=== PATIENT | female | born 1995 | race Caucasian/White ===

== ENCOUNTER 2016-12-15 11:05 | Emergency (ER) | payer OTHER ==
[~2016-12-15] VITALS: Ht 154.9 cm; Wt 73.8 kg
[~2016-12-15 11:05] MED LIST: ROBA500T PO; Z.0.NO CURRENT MEDS
[2016-12-15 11:13] VITALS: BP 123/83; PULSE 82; RESP 16; TEMP 98.2; O2SAT 99
[2016-12-15] MEDS ORDERED: MEDR150I9 IM (11:24)
[2016-12-15] MEDS ORDERED: ORPHENADRINE INJ 60 MG/2 ML AMP IM ONE (11:30)
[2016-12-15] MEDS ORDERED: DEXAMETHASONE SOD PHOS 20 MG/5 ML VIAL IM ONE (11:30)
[2016-12-15] MEDS ORDERED: KETOROLAC TROMETHAMINE 60 MG/2 ML (IM) VIAL IM ONE (11:30)
--- NOTE | 2016-12-15 11:37 | PD ---
HPI Chief Complaint: Musculoskeletal Complaint Time Seen by Provider: 11:25 Travel History International Travel<30 days: No Contact w/Intl Traveler<30days: No Traveled to known affect area: No History of Present Illness HPI Patient is a 21-year-old female presenting to emergency for evaluation of right biceps, elbow pain. Patient states she worked out last night as she normally does, since that time she's been unable to fully extend her elbow without significant pain. She states that the bicep feels tight, the pain is cramping. She rates her pain a 7 out of 10. She denies any actual injury or trauma. She denies any popping sensation. She denies any significant past medical history. [facility] Past Medical History Medical History: Denies Significant Hx Diminished Hearing: No Immunizations Current: Yes Tetanus Vaccination: > 5 Years Influenza Vaccination: No ?: Not LMP: DEPO SHOT-DOES NOT GET THEM Past Surgical History Other Surgery: Yes (eardrum) Social History Alcohol Use: Yes Tobacco Use: Yes Substance Use: No Allergies-Medications (Allergen,Severity, Reaction): Coded Allergies: No Known Allergies (Verified , 12/15/16) Reported Meds & Prescriptions Reported Meds & Active Scripts Active Reported Depo-Provera Inj (Medroxyprogesterone Inj) 150 Mg/Ml Inj 150 Mg IM Q90D Review of Systems Except as stated in HPI: all other systems reviewed are Neg Musculoskeletal: Positive: Myalgias, Limited ROM, Cramping, Pain Physical Exam Narrative GENERAL: Well-nourished, well-developed patient. SKIN: Warm and dry. HEAD: Normocephalic. EYES: No scleral icterus. No injection or drainage. NECK: Supple, trachea midline. No JVD or lymphadenopathy. CARDIOVASCULAR: Regular rate and rhythm without murmurs, gallops, or rubs. RESPIRATORY: Breath sounds equal bilaterally. No accessory muscle use. GASTROINTESTINAL: Abdomen soft, non-tender, nondistended. MUSCULOSKELETAL: No cyanosis, or edema. Decreased range of motion with flexion of right elbow, tenderness to palpation at distal bicep head. Positive radial pulse, full range of motion in right wrist and hand. Patient is neurovascularly intact. Hook test is negative. BACK: Nontender without obvious deformity. No CVA tenderness. Data Data Last Documented VS Vital Signs Date Time Temp Pulse Resp B/P Pulse Ox O2 Delivery O2 Flow Rate FiO2 2/8/17 11:13 98.2 82 16 123/83 99 Orders Ketorolac Inj (Toradol Inj) (12/15/16 11:30) Orphenadrine Inj (Norflex Inj) (12/15/16 11:30) Dexamethasone Inj (Decadron Inj) (12/15/16 11:30) MDM Medical Decision Making Medical Screen Exam Complete: Yes Emergency Medical Condition: Yes Interpretation(s) Vital Signs Date Time Temp Pulse Resp B/P Pulse Ox O2 Delivery O2 Flow Rate FiO2 12/15/16 11:13 98.2 82 16 123/83 99 Differential Diagnosis Distal bicep tendinitis versus tendon rupture versus muscle strain versus spasm versus other Narrative Course Patient is a 21-year-old female presented to emergency department for evaluation of right AC distal bicep pain. Pain started yesterday after working out. She is neurovascularly intact. Tendon appears intact at this time. Medications given for pain control. 1215 - patient reassessed, she has somewhat improved range of motion with extension of the right elbow. She reports improvement in pain. Patient was encouraged to alternate heat and ice to the affected area, continue range of motion exercises, avoid exacerbating activities. She was encouraged to follow- up with her primary doctor orthopedic surgeon if pain persisted despite conservative therapy. She was encouraged to take medications as directed. He was encouraged to return to the emergency department for any new or worsening symptoms. Patient is stable for discharge. Diagnosis Primary Impression: Strain of distal biceps femoris tendon Referrals: Orthopaedic Surgeon Primary Care Physician Patient Instructions: General Instructions, Tendinitis (ED) Additional Instructions: Follow-up with your primary doctor Follow-up with orthopedic surgeon if symptoms persist despite conservative therapy Return to emergency department for any new or worsening symptoms Take medications as directed Alternate heat and ice to affected area, continue range of motion exercises, avoid exacerbating activities Med/Other Pt SpecificInfo: Prescription(s) given Scripts Prednisone 50 Mg Tab50 Mg PO DAILY #5 TAB Ref 0 Prov:Deirdre Wilkes 12/15/16 Cyclobenzaprine (Flexeril)10 Mg Tab10 Mg PO TID PRN (MUSCLE SPASM) 10 Days Ref 0 Prov:Deirdre Wilkes 12/15/16 Ibuprofen 800 Mg [id number] Mg PO Q6HR PRN (PAIN) 10 Days Ref 0 Prov:Deirdre Wilkes 12/15/16 Disposition: 01 DISCHARGE HOME Condition: Stable Deirdre Wilkes Dec 15, 2016 11:37
[2016-12-15] MEDS ORDERED: IBUP800T23 PO (12:13)
[2016-12-15] MEDS ORDERED: PRED50 PO (12:13)
[2016-12-15] MEDS ORDERED: CYCL1TAB29 PO (12:13)
== END 2016-12-15 12:27 | disposition home or self-care (01) ==
LOC: PHEFT 11:05
DX: S46.211A Strain of muscle, fascia and tendon of other parts of biceps, right arm, initial encounter (principal); X50.0XXA Overexertion from strenuous movement or load, initial encounter; Y93.B9 Activity, other involving muscle strengthening exercises; Y93.9 Activity, unspecified; Y92.9 Unspecified place or not applicable; Y99.9 Unspecified external cause status
CPT/HCPCS: 96372; 99283; J1100; J1885; J2360

== ENCOUNTER 2017-01-24 09:50 | Emergency (ER) | payer OTHER ==
[~2017-01-24] VITALS: Ht 154.9 cm; Wt 68.0 kg
[~2017-01-24 09:50] MED LIST changes: +CYCL1TAB29 PO; +IBUP800T23 PO; +MEDR150I9 IM; +PRED50 PO; -ROBA500T PO; -Z.0.NO CURRENT MEDS
[2017-01-24 09:52] VITALS: BP 143/80; PULSE 102; RESP 20; TEMP 98.2; O2SAT 99
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
[2017-01-24] MEDS ORDERED: IBUP800T23 PO (11:52)
== END 2017-01-24 12:06 | disposition home or self-care (01) ==
LOC: NEPB 09:50
DX: S62.640A Nondisplaced fracture of proximal phalanx of right index finger, initial encounter for closed fracture (principal); X58.XXXA Exposure to other specified factors, initial encounter; Y93.9 Activity, unspecified; Y92.9 Unspecified place or not applicable; Y99.9 Unspecified external cause status
CPT/HCPCS: 29130; 73130

== ENCOUNTER 2017-01-25 23:54 | Observation (INO) | payer OTHER ==
[~2017-01-25 23:54] MED LIST changes: -CYCL1TAB29 PO; -PRED50 PO
[2017-01-26] MEDS ORDERED: SODIUM CHLORIDE 0.9% FLUSH 10 ML FLUSH IVF PRN
[2017-01-26 00:09] VITALS: BP 116/57; PULSE 93; RESP 16; O2SAT 98
[2017-01-26 00:12] VITALS: BP 116/57; PULSE 91; RESP 16
[2017-01-26 00:24] LABS: AUTOMATED NEUTROPHIL # 3.1 TH/MM3 (1.8-7.7); BASOPHIL % 0.5 % (0.0-2.0); EOSINOPHIL # 0.1 TH/MM3 (0-0.4); HEMATOCRIT 40.1 % (35.0-46.0); HEMO FLAGS DIFF FINAL; LYMPH % 43.6 % (9.0-44.0); LYMPHOCYTE # 3.1 TH/MM3 (1.0-4.8); MEAN CELL VOLUME 93.3 FL (80.0-100.0); MEAN CORPUSCULAR HEMOGLOBIN 33.4 PG (27.0-34.0); MEAN CORPUSCULAR HGB CONC 35.8 % (32.0-36.0); MONO % 9.2 % (0.0-8.0); NEUT % 44.7 % (16.0-70.0); PLATELET COUNT 212 TH/MM3 (150-450); RED CELL DISTRIBUTION WIDTH 12.5 % (11.6-17.2)
[2017-01-26 00:35] LABS: PROTHROMBIN TIME - PATIENT 11.4 SEC (9.8-11.6)
--- NOTE | 2017-01-26 00:53 | RADRPT ---
EXAM DATE/TIME: 01/26/2017 00:40 [facility] COMPARISON: No previous studies available for comparison. INDICATIONS : Cough. MEDICAL HISTORY : None. SURGICAL HISTORY : None. ENCOUNTER: Initial ACUITY: 1 day PAIN SCORE: 0/10 LOCATION: Bilateral chest FINDINGS: A single view of the chest demonstrates the lungs to be symmetrically aerated without evidence of mas s, infiltrate or effusion. The cardiomediastinal contours are unremarkable. Osseous structures are intact. CONCLUSION: No acute disease. Enio Blanco MD on January 26, 2017 at 0:52 Board Certified Radiologist. This report was verified electronically.
[2017-01-26] MEDS ORDERED: SODIUM CHLOR 0.9% 1000 ML INJ 1,000 ML IV ONE ×2 (02:00)
[2017-01-26 02:22] LABS: BACTERIA, URINE RARE /hpf; BLOOD, URINE NEG (NEG); GLUCOSE,URINE NEG (NEG); KETONE, URINE NEG (NEG); MUCUS URINE FEW /lpf (OCC); NITRITE,URINE NEG (NEG); PH, URINE 6.5 (5.0-8.5); SQUAMOUS EPITHELIAL CELL URINE 1 /hpf (0-5); URINE COLOR LIGHT-YELLOW (YELLW/STRAW)
[2017-01-26 02:23] LABS: COMMENT (UR) CULT NOT INDICATED; CULTURE IF INDICATED CULT NOT INDICATED
[2017-01-26 02:27] LABS: AMPHETAMINE, URINE NEG (NEG); BARBITURATES, URINE NEG (NEG); COCAINE, URINE NEG (NEG)
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
[2017-01-26] MEDS ORDERED: SODIUM CHLORIDE 0.9% FLUSH 10 ML FLUSH IV FLUSH PRN (03:45)
[2017-01-26] MEDS ORDERED: NALOXONE HCL 0.4 MG/ML AMP IV PRN (03:45)
[2017-01-26] MEDS ORDERED: THIAMINE INJ 100 MG in SODIUM CHLORIDE 0.9% INJ 100 ML IV ONE (03:45)
[2017-01-26 03:50] LABS: ACETAMINOPHEN LESS THAN 2.0 MCG/ML (10.0-30.0); ALKALINE PHOSPHATASE 62 U/L (45-117); BETA HCG QUANT LESS THAN 1 MIU/ML (0-5); TOTAL BILIRUBIN ADULT 0.5 MG/DL (0.2-1.0)
[2017-01-26 04:13] LABS: ALT (GPT) 19 U/L (10-53); ANION GAP 7 MEQ/L (5-15); AST (GOT) 32 U/L (15-37); BICARBONATE 23.7 MEQ/L (21.0-32.0); BLOOD UREA NITROGEN 5 MG/DL (7-18); CHLORIDE 112 MEQ/L (98-107); GLOMERULAR FILTRATION RATE 91 ML/MIN (>89); SODIUM (NA) 143 MEQ/L (136-145)
[2017-01-26 04:25] LABS: POTASSIUM 4.8 MEQ/L (3.5-5.1)
[2017-01-26 07:30] VITALS: BP 96/51; PULSE 94; RESP 18; O2SAT 97
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
[2017-01-26] MEDS ORDERED: SODIUM CHLORIDE 0.9% FLUSH 10 ML FLUSH IV FLUSH SCH (09:00)
[2017-01-26 09:15] VITALS: BP 111/59; PULSE 72; RESP 18; TEMP 97.8; O2SAT 98
[2017-01-26 13:49] VITALS: BP 116/67; PULSE 81; RESP 20; TEMP 98.1; O2SAT 99
--- NOTE | 2017-01-26 14:11 | HHI.PR ---
Addendum to Inpatient Note Addendum Reason: Additional Documentation Additional Information Patient was seen this morning however she was treated under Cesar act although she was medically clear for discharge. Patient was seen now by psychiatry and Cesar act was lifted therefore patient will be discharged home in stable condition Discharge patient to home Condition on discharge: Improved Regular Diet as tolerated Ad Melony activity Rx written:none Follow-up with primary care physician in 1 week Adam Bhatt MD Jan 26, 2017 14:11
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
== END 2017-01-26 15:09 | disposition home or self-care (01) ==
LOC: NEPE 23:54 → NEDA 01-26 03:17 → NEPFCDU 01-26 08:00
PROVIDERS: ADMIT Hospitalist; ATTEND Hospitalist
DX: T42.4X2A Poisoning by benzodiazepines, intentional self-harm, initial encounter (principal); S62.640A Nondisplaced fracture of proximal phalanx of right index finger, initial encounter for closed fracture; F10.10 Alcohol abuse, uncomplicated; F39 Unspecified mood [affective] disorder; F17.200 Nicotine dependence, unspecified, uncomplicated; Y04.2XXA Assault by strike against or bumped into by another person, initial encounter
CPT/HCPCS: 71010; 80053; 80307; 81001; 84702; 85025; 85610; 85730; 96360; 96361; G0378; J3411; J7030

== ENCOUNTER 2018-02-23 22:48 | Emergency (ER) | payer OTHER ==
[~2018-02-23] VITALS: Ht 154.9 cm; Wt 67.0 kg
[~2018-02-23 22:48] MED LIST changes: -IBUP800T23 PO
[2018-02-23 22:54] VITALS: BP 141/86; PULSE 112; RESP 18; O2SAT 99
[2018-02-23] MEDS ORDERED: diphenhydrAMINE HCL 50 MG/ML VIAL IVP ONE (23:00)
[2018-02-23] MEDS ORDERED: FAMOTIDINE 20 MG/2 ML VIAL IV PUSH ONE (23:00)
[2018-02-23] MEDS ORDERED: SODIUM CHLORIDE 0.9% FLUSH 10 ML FLUSH IV FLUSH PRN (23:00)
[2018-02-23] MEDS ORDERED: methylPREDNISolone SOD SUCC 125 MG/2 ML VIAL IV PUSH ONE (23:00)
[2018-02-23 23:01] VITALS: RESP 20; O2SAT 98
[2018-02-23] MEDS ORDERED: CLON.5 PO (23:01)
[2018-02-23] MEDS ORDERED: PRED20 PO (23:28)
--- NOTE | 2018-02-23 23:29 | PD ---
HPI Chief Complaint: Allergic/Adverse Reaction Time Seen by Provider: 22:55 Travel History International Travel<30 days: No Contact w/Intl Traveler<30days: No Traveled to known affect area: No History of Present Illness HPI 22-year-old female presents with hive-like rash and feeling short of breath shortly prior to arrival. She denies eating anything new or exposure to any new detergent or soap or anything that she can recall. She states tonight she ate shrimp but she has had those multiple times. She denies any other concurrent complaints. Quality is hives. Location is diffuse throughout body. She denies specific modifying factors. She denies taking any Benadryl or medication prior to arrival. PFSH Past Medical History Cancer: No Cardiovascular Problems: No Chemotherapy: No Diminished Hearing: No Endocrine: No Genitourinary: No Immune Disorder: No Musculoskeletal: No Neurologic: No Psychiatric: No Reproductive: No Respiratory: No Immunizations Current: Yes Radiation Therapy: No ?: Not Past Surgical History Other Surgery: Yes (ear drum) Social History Alcohol Use: Yes (occ) Tobacco Use: No Substance Use: No Allergies-Medications (Allergen,Severity, Reaction): Coded Allergies: No Known Allergies (Verified Adverse Reaction, Unknown, 02/23/18) Reported Meds & Prescriptions Reported Meds & Active Scripts Active Prednisone 20 Mg Tab 40 Mg PO DAILY 3 Days Take 40 mg (2 tablets) daily for 5 days Reported Klonopin (Clonazepam) 0.5 Mg Tab 0.5 Mg PO HS Depo-Provera Inj (Medroxyprogesterone Inj) 150 Mg/Ml Inj 150 Mg IM Q90D Review of Systems Except as stated in HPI: all other systems reviewed are Neg Physical Exam Narrative GENERAL: 22-year-old female in no apparent distress SKIN: Hive-like reaction diffusely noted throughout body HEAD: Atraumatic. Normocephalic. EYES: Pupils equal and round. No scleral icterus. No injection or drainage. ENT: No nasal bleeding or discharge. Mucous membranes pink and moist. Uvula midline without swelling NECK: Trachea midline. No JVD. CARDIOVASCULAR: Regular rate and rhythm. No murmur appreciated. RESPIRATORY: No accessory muscle use. Clear to auscultation. Breath sounds equal bilaterally. GASTROINTESTINAL: Abdomen soft, non-tender, nondistended. Hepatic and splenic margins not palpable. MUSCULOSKELETAL: No obvious deformities. No clubbing. No cyanosis. NEUROLOGICAL: Awake and alert. No obvious cranial nerve deficits. Motor grossly within normal limits. Normal speech. PSYCHIATRIC: Appropriate mood and affect; insight and judgment normal. Data Data Last Documented VS Vital Signs Date Time Temp Pulse Resp B/P (MAP) Pulse Ox O2 Delivery O2 Flow Rate FiO2 02/24/18 01:55 91 16 102/55 (71) 98 02/23/18 23:57 Room Air Orders Orders Ecg Monitoring (02/23/18 22:55) Iv Access Insert/Monitor (02/23/18 22:55) Oximetry (02/23/18 22:55) Diphenhydramine Inj (Benadryl Inj) (02/23/18 23:00) Methylprednisolone So Succ Inj (Solumedr (02/23/18 23:00) Famotidine Inj (Pepcid Inj) (02/23/18 23:00) Sodium Chloride 0.9% Flush (Ns Flush) (02/23/18 23:00) Ed Discharge Order (02/24/18 01:39) MDM Medical Decision Making Medical Screen Exam Complete: Yes Emergency Medical Condition: Yes Medical Record Reviewed: Yes (Past history confirmed) Differential Diagnosis Allergic reaction, medication sensitivity, rash Narrative Course Will dose with Benadryl, Solu-Medrol, Pepcid and reevaluate On recheck rash has improved, patient denies any new complaints and states that they are feeling better. Patient happy with care, all questions answered. Patient knows that follow up is incumbent on them and to return to the emergency room immediately if new or worsening symptoms develop. Patient given strict return precautions, vitals reviewed and are normal, agrees to further workup as an outpatient. Diagnosis Primary Impression: Allergic reaction Qualified Codes: T78.40XA - Allergy, unspecified, initial encounter Patient Instructions: General Instructions Additional Instructions: return as needed, benadryl as needed every 6 hours, follow with primary for recheck tommorrow Med/Other Pt SpecificInfo: Prescription(s) given Scripts Prednisone (Prednisone) 20 Mg Tab 40 MG PO DAILY for 3 Days, #6 TAB 0 Refills Take 40 mg (2 tablets) daily for 5 days Prov: Sierra Roblero MD 02/23/18 Disposition: 01 DISCHARGE HOME Condition: Stable Sierra Roblero MD Feb 23, 2018 23:28
[2018-02-23 23:57] VITALS: PULSE 93; RESP 18; O2SAT 97
[2018-02-24 01:55] VITALS: BP 102/55
== END 2018-02-24 01:58 | disposition home or self-care (01) ==
LOC: NEPE 22:48
DX: T78.40XA Allergy, unspecified, initial encounter (principal); L50.9 Urticaria, unspecified; R06.02 Shortness of breath
CPT/HCPCS: 96374; 96375; 99284; J1200; J2930